=== PATIENT | male | born 1970 | race Caucasian/White ===

== ENCOUNTER 2018-02-19 23:59 | Emergency (ER) | payer OTHER ==
[~2018-02-19] VITALS: Ht 177.8 cm; Wt 93.0 kg
[2018-02-20 00:14] VITALS: Ht 177.8 cm; Wt 93.0 kg
[2018-02-20 00:38] VITALS: BP 140/97
== END 2018-02-20 00:38 | disposition home or self-care (01) ==
LOC: ED 23:59
DX: L02.811 Cutaneous abscess of head [any part, except face] (principal)